=== PATIENT | male | born 1955 | race Caucasian/White ===

== ENCOUNTER 2017-06-07 18:31 | Emergency (ER) | payer OTHER ==
[~2017-06-07] VITALS: Ht 167.6 cm; Wt 70.8 kg
--- NOTE | 2017-06-07 18:47 | NUR ---
PT REC'D TO ER VIA EMS PT FELL AT HOME NO KO / WANTS TO GO BACK HOME AWAITING EVALUATION BY ER PROVIDER.
[2017-06-07 19:19] VITALS: BP 130/76
--- NOTE | 2017-06-07 19:20 | NUR ---
Note tere in EDM - 06/07/17 at 1948 by APASCUAL Patient discharged to home in stable condition. Written and verbal after care instructions given. Patient verbalizes understanding of instruction. Pt ambulatory with a steady gait. VSS, NAD noted on DC. Denies complaint on DC.
--- NOTE | 2017-06-07 19:56 | NUR ---
CALLED [facility] FOR BLS TRANSPORT BACK HOME. TRIP #[id number]. ETA 30 MINUTES.
== END 2017-06-07 19:21 | disposition home or self-care (01) ==
LOC: ER 18:32
DX: Z13.89 Encounter for screening for other disorder (principal); R53.1 Weakness; G20 Parkinson's disease; W01.0XXA Fall on same level from slipping, tripping and stumbling without subsequent striking against object, initial encounter; Y93.89 Activity, other specified; Y92.89 Other specified places as the place of occurrence of the external cause; Y99.8 Other external cause status
CPT/HCPCS: A4606; Z7610